=== PATIENT | female | born 1970 | race Caucasian/White ===

== ENCOUNTER 2016-10-14 13:58 | Emergency (ER) | payer BC ==
[~2016-10-14] VITALS: Ht 172.7 cm; Wt 120.2 kg
[~2016-10-14 13:58] MED LIST: ACIDOPHILUS1 EAC3 PO; ACIDOPHILUS1 EAC4 PO; ALLEGRA ALLERG180 MG PO; CALCIUM600 MG PO; CIPRO500 MG PO; FLAX OIL1000 MG PO; HYDROCODON-ACE1 EAC8 PO; LEXAPRO10 MG PO; LISINOPRIL10 MG PO; METFORMIN HCL1000 MG PO; MOBIC15 MG PO; MULTI-DAY VITA1 EACH PO; PERCOCET 5/31 TABLET PO; PREDNISONE20 MG PO; REMICADE10 MG/ML IV; VICTOZA 2-0.6 MG/0.1 SC; WELLBUTRIN; ZOFRAN ODT4 MG PO
[2016-10-14 16:02] LABS: HEMATOCRIT 41.9 % (36.0-46.0); MCH 26.9 PG (29.0-34.0); MCV 84.1 FL (83-99); MEAN PLAT.VOLUME 10.1 uM^3 (9.5-12.4); PLATELET COUNT 301 K/uL (156-360); RBC DIS.WIDTH-CV 13.3 % (11.8-14.6); RBC DIS.WIDTH-SD 41.2 % (39-53); RED BLOOD COUNT 4.98 M/uL (3.80-5.20); WHITE BLOOD COUNT 8.3 K/uL (4.1-10.2)
[2016-10-14 16:14] LABS: CHLORIDE 104 mEq/L (99-109)
[2016-10-14 16:15] LABS: POTASSIUM 4.4 mEq/L (3.7-5.4); SODIUM 136 mEq/L (136-147)
[2016-10-14 16:16] LABS: GLUCOSE 181 mg/dL (70-99)
[2016-10-14 16:18] LABS: ANION GAP 9 MEQ/L (2-14)
[2016-10-14 16:20] LABS: GFR ESTIMATE (CALCULATED) > 59 mL/min/
[2016-10-14 16:21] LABS: UREA NITROGEN (BUN) 14 mg/dL (9-23)
[2016-10-14 16:22] LABS: TROP-I INTERPRETATION NEGATIVE; TROPONIN-I < 0.01 ng/mL (0.0-0.30)
[2016-10-14 18:55] VITALS: BP 110/77
== END 2016-10-14 18:56 | disposition home or self-care (01) ==
LOC: EME 13:58
PROVIDERS: Nurse Practitioner Family
DX: R20.2 Paresthesia of skin (principal); R07.9 Chest pain, unspecified; E11.65 Type 2 diabetes mellitus with hyperglycemia; I10 Essential (primary) hypertension
CPT/HCPCS: 70450; 71020; 80048; 84484; 85027; 93005; 99281; 99283

== ENCOUNTER 2017-04-21 09:02 | Emergency (ER) | payer BC ==
[~2017-04-21] VITALS: Ht 172.7 cm; Wt 125.2 kg
[2017-04-21] MEDS ORDERED: PENTASA500 MG PO (09:26)
[2017-04-21] MEDS ORDERED: NAPROXEN500 MG PO (11:21)
[2017-04-21] MEDS ORDERED: LIDODERM 5% P1 PATCH TD (11:21)
[2017-04-21 11:42] VITALS: BP 156/94
== END 2017-04-21 11:43 | disposition home or self-care (01) ==
LOC: EME 09:02
DX: M54.31 Sciatica, right side (principal); S46.002A Unspecified injury of muscle(s) and tendon(s) of the rotator cuff of left shoulder, initial encounter; S50.12XA Contusion of left forearm, initial encounter; W19.XXXA Unspecified fall, initial encounter; M25.532 Pain in left wrist
CPT/HCPCS: 73030; 73080; 73090; 73110; 99281; 99284; J1885

== ENCOUNTER 2017-05-15 19:48 | Emergency (ER) | payer BC ==
[~2017-05-15] VITALS: Ht 172.7 cm; Wt 122.9 kg
[~2017-05-15 19:48] MED LIST changes: +LIDODERM 5% P1 PATCH TD; +NAPROXEN500 MG PO; +PENTASA500 MG PO
[2017-05-15 20:54] LABS: HEMOGLOBIN 14.6 G/DL (11.9-15.5); MCH 27.1 PG (29.0-34.0); MCHC 32.4 G/DL (30.0-36.0); MCV 83.5 FL (83-99); PLATELET COUNT 282 K/uL (156-360); RBC DIS.WIDTH-CV 13.2 % (11.8-14.6); RBC DIS.WIDTH-SD 40.6 % (39-53); RED BLOOD COUNT 5.39 M/uL (3.80-5.20); WHITE BLOOD COUNT 9.4 K/uL (4.1-10.2)
[2017-05-15 21:19] LABS: APPEARANCE SL.HAZY ((CLEAR)); BILIRUBIN NEGATIVE; BLOOD NEGATIVE; COLOR YELLOW ((YELLOW)); GLUCOSE (STRIP) 150; KETONES 5; LEUKOCYTES NEGATIVE; NITRITE NEGATIVE; PROTEIN (STRIP) 100; UROBILINOGEN 0.2 MG/DL (0.2-1.0)
[2017-05-15 21:24] LABS: BACTERIA NONE SEEN /HPF; EPITHELIAL CELLS 1+ /HPF; MUCUS TRACE /LPF; RED BLOOD CELLS 0-5 /HPF (0-5); UCUL ADDED? NO; WHITE BLOOD CELLS 0-5 /HPF (0-5)
[2017-05-15 21:25] LABS: ALBUMIN 3.6 G/DL (3.2-4.8); ALKALINE PHOSPHATASE 92 IU/L (3-129); ALT (GPT) 40 IU/L (3-49); AST (GOT) 28 IU/L (2-34); CHLORIDE 100 MEQ/L (99-109); GFR ESTIMATE (CALCULATED) > 59 mL/min/; GLUCOSE 300 mg/dL (70-99); POTASSIUM 4.1 MEQ/L (3.7-5.4); SODIUM 132 MEQ/L (136-147); TOTAL BILIRUBIN 0.7 MG/DL (0.0-1.0); TOTAL PROTEIN 7.3 G/DL (6.4-8.3); UREA NITROGEN (BUN) 19 mg/dL (9-23)
[2017-05-15 21:52] LABS: QUANTITATIVE HCG < 4.0 MIU/ML
[2017-05-16 01:18] LABS: C DIFF TOXIN NEGATIVE (NEGATIVE)
[2017-05-16] MEDS ORDERED: FLAGYL500 MG PO (01:28)
[2017-05-16] MEDS ORDERED: CIPRO500 MG PO (01:28)
[2017-05-16] MEDS ORDERED: PERCOCET 5/31 TABLET PO (01:28)
[2017-05-16] MEDS ORDERED: ZOFRAN ODT4 MG PO (01:28)
[2017-05-16 02:36] VITALS: BP 118/79
== END 2017-05-16 02:37 | disposition home or self-care (01) ==
LOC: EME 19:48
PROVIDERS: Physician Assistant
DX: K50.90 Crohn's disease, unspecified, without complications (principal); I10 Essential (primary) hypertension; E11.9 Type 2 diabetes mellitus without complications; Z90.49 Acquired absence of other specified parts of digestive tract; Z79.84 Long term (current) use of oral hypoglycemic drugs
CPT/HCPCS: 74177; 80053; 81003; 84702; 85027; 87493; 87502; 99281; 99284; J2270; J2405; J3010; J7030

== ENCOUNTER 2017-11-10 09:50 | Emergency (ER) | payer BC ==
[~2017-11-10] VITALS: Ht 172.7 cm; Wt 102.5 kg
[~2017-11-10 09:50] MED LIST changes: +FLAGYL500 MG PO
[2017-11-10 10:47] LABS: HEMATOCRIT 40.3 % (36.0-46.0); MCHC 32.3 G/DL (30.0-36.0); MCV 83.6 FL (83-99); PLATELET COUNT 278 K/uL (156-360); RED BLOOD COUNT 4.82 M/uL (3.80-5.20); WHITE BLOOD COUNT 7.6 K/uL (4.1-10.2)
[2017-11-10 11:00] LABS: CHLORIDE 105 mEq/L (99-109); POTASSIUM 4.1 mEq/L (3.7-5.4); SODIUM 139 mEq/L (136-147)
[2017-11-10 11:01] LABS: GLUCOSE 247 mg/dL (70-99)
[2017-11-10 11:05] LABS: CREATININE 0.8 mg/dL (0.6-1.3); GFR ESTIMATE (CALCULATED) > 59 mL/min/
[2017-11-10 11:06] LABS: UREA NITROGEN (BUN) 14 mg/dL (9-23)
[2017-11-10 11:10] LABS: TROP-I INTERPRETATION NEGATIVE; TROPONIN-I < 0.01 ng/mL (0.0-0.30)
[2017-11-10 13:03] LABS: TROP-I INTERPRETATION NEGATIVE; TROPONIN-I < 0.01 ng/mL (0.0-0.30)
[2017-11-10] MEDS ORDERED: FLEXERIL10 MG PO (13:38)
[2017-11-10 13:58] VITALS: BP 142/85
== END 2017-11-10 14:00 | disposition home or self-care (01) ==
LOC: EME 09:50
PROVIDERS: Nurse Practitioner Family
DX: R07.89 Other chest pain (principal); E11.65 Type 2 diabetes mellitus with hyperglycemia; S29.011A Strain of muscle and tendon of front wall of thorax, initial encounter; X50.0XXA Overexertion from strenuous movement or load, initial encounter; Y93.89 Activity, other specified; Y99.0 Civilian activity done for income or pay; I10 Essential (primary) hypertension; K50.90 Crohn's disease, unspecified, without complications; Z90.49 Acquired absence of other specified parts of digestive tract; Z79.84 Long term (current) use of oral hypoglycemic drugs
CPT/HCPCS: 71046; 80048; 84484; 85027; 93005; 99281; 99283